=== PATIENT | male | born 1970 | race African-American/Black ===

== ENCOUNTER 2017-01-01 13:27 | Emergency (ER) | payer OTHER, SELFPAY ==
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
[2017-01-01 14:38] VITALS: BP 135/92
== END 2017-01-01 15:50 | disposition home or self-care (01) ==
LOC: VM.ED 13:27
DX: S80.02XA Contusion of left knee, initial encounter (principal); S90.812A Abrasion, left foot, initial encounter; I10 Essential (primary) hypertension; X58.XXXA Exposure to other specified factors, initial encounter
CPT/HCPCS: 73562-LT; 73610-LT; 73630-LT; 99282-GF; 99284